=== PATIENT | female | born 2000 | race Caucasian/White ===

== ENCOUNTER 2023-07-14 18:07 | Emergency (ER) | payer OTHER ==
[2023-07-14] MEDS ORDERED: Lidocaine 1% w/Epinephrine 1:100K 20 ML VIAL ONE (19:41)
[2023-07-14] MEDS ORDERED: Ketorolac Tromethamine 30 MG (1 mL) VIAL ONE (20:01)
== END 2023-07-14 20:31 | disposition home or self-care (01) ==
LOC: ERS 18:07
DX: L02.411 Cutaneous abscess of right axilla (principal); F17.290 Nicotine dependence, other tobacco product, uncomplicated
CPT/HCPCS: 96372; 99283; J1885